=== PATIENT | female | born 1955 | race American Indian/Alaskan Native ===

== ENCOUNTER 2021-02-12 08:53 | Emergency (ER) | payer SELFPAY ==
[2021-02-12 09:28] VITALS: BP 188/96
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
== END 2021-02-13 04:39 | disposition home or self-care (01) ==
LOC: ED 08:53
DX: T23.002A Burn of unspecified degree of left hand, unspecified site, initial encounter (principal); I10 Essential (primary) hypertension; Z88.6 Allergy status to analgesic agent; Z79.899 Other long term (current) drug therapy; Z87.891 Personal history of nicotine dependence; X58.XXXA Exposure to other specified factors, initial encounter; Y93.89 Activity, other specified; Y92.89 Other specified places as the place of occurrence of the external cause; Y99.8 Other external cause status
CPT/HCPCS: 99281